=== PATIENT | female | born 1965 | race Caucasian/White ===

== ENCOUNTER 2023-05-22 19:20 | Observation (INO) | payer OTHER ==
[~2023-05-22] VITALS: Ht 172.7 cm; Wt 80.3 kg
[2023-05-22 19:30] VITALS: BP 127/79; PULSE 81; RESP 18; TEMP 98.2; O2SAT 100
[2023-05-22 21:04] LABS: BASOPHILS # (AUTO) 0.2 K/uL (0.00-0.22); BASOPHILS % (AUTO) 2.6 % (0.0-2.0); EOSINOPHILS # (AUTO) 0.4 K/uL (0-0.4); EOSINOPHILS % (AUTO) 4.4 % (0.0-4.0); HEMATOCRIT 40.5 % (36-48); HEMOGLOBIN 13.6 g/dL (12.0-16.0); LYMPHOCYTES # (AUTO) 2.6 K/uL (2.5-16.5); LYMPHOCYTES % (AUTO) 33.2 % (20.5-51.1); MEAN CORPUSCULAR HEMOGLOBIN 27 pg (27-31); MEAN CORPUSCULAR HGB CONC 34 g/dL (33-37); MEAN CORPUSCULAR VOLUME 78.8 fL (80-94); MONOCYTES # (AUTO) 0.7 K/uL (0.8-1.0); MONOCYTES % (AUTO) 8.7 % (1.7-9.3); NEUTROPHILS # (AUTO) 4.1 K/uL (1.8-7.7); NEUTROPHILS % (AUTO) 51.1 % (42.2-75.2); PLATELET COUNT (AUTO) 233 K/uL (140-450); RED BLOOD CELL COUNT(AUTO) 5.14 MIL/uL (4.20-5.40)
[2023-05-22 21:11] LABS: ANION GAP 9.4 (8-16); CALCIUM 9.2 mg/dL (8.5-10.1); CARBON DIOXIDE 30.4 mmol/L (21-32); CREATININE 0.7 mg/dL (0.6-1.3); POTASSIUM 3.8 mmol/L (3.5-5.1)
[2023-05-22] MEDS: ASPIRIN 325 MG TAB PO ONE (23:45)
[2023-05-23] VITALS (8 sets, daily range): BP systolic 99–124; BP diastolic 69–76; PULSE 66–78; RESP 18; TEMP 97.2–97.9; O2SAT 96–100
[2023-05-23] MEDS ORDERED: ASPI81CT95 PO (00:07)
[2023-05-23] MEDS ORDERED: BISO5TAB23 PO (00:07)
[2023-05-23] MEDS ORDERED: ATOR40TA40 PO (00:07)
[2023-05-23] MEDS ORDERED: ONDANSETRON 4 MG/2 ML VIAL IVP PRN (00:40)
[2023-05-23] MEDS ORDERED: ACETAMINOPHEN 325 MG TAB PO PRN (00:40)
[2023-05-23] MEDS ORDERED: HYDROcodone/APAP 5/325 MG 1 TAB TAB PO PRN (00:40)
[2023-05-23] MEDS ORDERED: MORPHINE SULFATE 4 MG/ML SYR IVP PRN (00:40)
[2023-05-23] MEDS ORDERED: POTASSIUM CHLORIDE 10 MEQ TABER PO PRN (00:40)
[2023-05-23] MEDS ORDERED: ZOLPIDEM 5 MG TAB PO PRN (00:40)
[2023-05-23] MEDS ORDERED: LORazepam 1 MG TAB PO PRN (00:40)
[2023-05-23] MEDS ORDERED: MAG SULF 2000 MG/WATER PREMIX 50 ML IV PRN (00:40)
[2023-05-23] MEDS ORDERED: KCL 20 MEQ IN 100 mL PREMIX 200 ML IV PRN (00:40)
[2023-05-23] MEDS: ASPIRIN 81 MG TAB.CHEW PO SCH (08:23)
[2023-05-23] MEDS: ATORVASTATIN 20 MG TAB PO SCH (08:23)
== END 2023-05-23 13:45 | disposition home or self-care (01) ==
LOC: MED 19:20 → MTU 05-23 00:40
PROVIDERS: ADMIT Internal Medicine; ATTEND Internal Medicine
DX: R07.9 Chest pain, unspecified (principal); I25.10 Atherosclerotic heart disease of native coronary artery without angina pectoris; F17.210 Nicotine dependence, cigarettes, uncomplicated; Z79.899 Other long term (current) drug therapy; Z79.82 Long term (current) use of aspirin
CPT/HCPCS: 36415; 71045; 80048; 83880; 84484; 85025; 87081; 93005; 99285; G0378